=== PATIENT | male | born 1975 | race Caucasian/White ===

== ENCOUNTER 2024-09-10 03:47 | Emergency (ER) | payer OTHER ==
[~2024-09-10] VITALS: Ht 170.2 cm; Wt 59.0 kg
[~2024-09-10 03:47] MED LIST: NO MEDS
[2024-09-10 04:11] LABS: BASOPHILS # (AUTO) 0.1 (0.0-0.1); BASOPHILS % 0.9 % (0.0-1.0); EOSINOPHILS # (AUTO) 0.7 (0.0-0.4); EOSINOPHILS % 5.2 % (0.0-6.0); HEMATOCRIT 41.3 % (38.2-49.6); HEMOGLOBIN 14.2 g/dL (14.0-18.0); LYMPHOCYTES # (AUTO) 3.4 (1.0-3.2); MEAN CORPUSCULAR HEMOGLOBIN 29.5 pg (28-32); MEAN CORPUSCULAR HGB CONC 34.4 g/dL (31-35); MEAN CORPUSCULAR VOLUME 85.7 fL (81-99); MONOCYTES # (AUTO) 0.9 (0.2-0.8); MONOCYTES % 6.8 % (4.4-11.3); NEUTROPHILS # (AUTO) 7.9 (2.1-6.9); NEUTROPHILS % 60.7 % (38.7-80.0); PLATELET COUNT 217 x10e3/uL (140-360); RED BLOOD COUNT 4.82 x10e6/uL (4.3-5.7); WHITE BLOOD COUNT 13.04 x10e3/uL (4.8-10.8)
[2024-09-10 04:44] LABS: ALANINE AMINOTRANSFERASE 9 IU/L (0-55); ALBUMIN 3.3 g/dL (3.5-5.0); ALKALINE PHOSPHATASE 109 IU/L (40-150); ANION GAP 17.2 mmol/L (8-16); BILIRUBIN,TOTAL 0.3 mg/dL (0.2-1.2); BLOOD UREA NITROGEN 9 mg/dL (7-26); BUN/CREATININE RATIO 9 (6-25); CALCIUM 8.6 mg/dL (8.4-10.2); CARBON DIOXIDE 21 mmol/L (22-29); CHLORIDE 97 mmol/L (98-107); CREATINE KINASE 57 IU/L (30-200); CREATININE, SERUM 0.97 mg/dL (0.72-1.25); EST GLOMERULAR FILTRATION RATE 96 ML/MIN (>=60); POTASSIUM 4.2 mmol/L (3.5-5.1); SODIUM 131 mmol/L (136-145); TOTAL PROTEIN 6.7 g/dL (6.5-8.1)
[2024-09-10 04:47] LABS: GLUCOSE 560 mg/dL (74-118)
[2024-09-10 04:50] LABS: CORONAVIRUS COVID-19 AG NEGATIVE (NEGATIVE); INFLUENZA A AG NEGATIVE (NEGATIVE); INFLUENZA B AG NEGATIVE (NEGATIVE)
[2024-09-10 04:53] LABS: TROPONIN I < 0.001 ng/mL (0-0.300)
[2024-09-10] MEDS: SODIUM CHLORIDE 0.9% 1000ML 1,000 ML IV STA (05:00)
[2024-09-10] MEDS: INSULIN REGULAR, HUMAN 100 UNIT/1 ML IV STA (05:00)
[2024-09-10 05:15] LABS: CLARITY,URINE CLEAR (CLEAR); COLOR,URINE YELLOW (YELLOW); LEUKOCYTE ESTERASE ,URINE NEGATIVE (NEGATIVE); NITRITE,URINE NEGATIVE (NEGATIVE); PH,URINE 7 (5 - 7); PROTEIN,URINE DIPSTICK NEGATIVE (NEGATIVE)
[2024-09-10 05:16] LABS: AMPHETAMINES SCREEN,URINE NEGATIVE (NEGATIVE); BENZODIAZEPINES SCREEN,URINE NEGATIVE (NEGATIVE); BILIRUBIN,URINE NEGATIVE (NEGATIVE); CANNABINOIDS SCREEN,URINE NEGATIVE (NEGATIVE); COCAINE SCREEN,URINE NEGATIVE (NEGATIVE); GLUCOSE, URINE 500 (NEGATIVE); KETONES,URINE NEGATIVE (NEGATIVE); METHADONE SCREEN, URINE NEGATIVE (NEGATIVE); OPIATES SCREEN,URINE NEGATIVE (NEGATIVE); PHENCYCLIDINE SCREEN,URINE NEGATIVE (NEGATIVE); URINE UROBILINOGEN 0.2 mg/dL (0.2 - 1)
[2024-09-10 05:20] LABS: WBC,URINE (MAN) 0-5 /HPF (0-5)
[2024-09-10 05:21] LABS: BACTERIA,URINE FEW /HPF; EPITHELIAL CELLS,URINE FEW /LPF; RBC,URINE 0-5 /HPF (0-5)
[2024-09-10 05:50] VITALS: PULSE 84; RESP 18; TEMP 98.6; O2SAT 99
[2024-09-10] MEDS ORDERED: VENTOLIN HFA18 GM INH (05:51)
[2024-09-10] MEDS ORDERED: AZITHROMYCIN250 MG PO (05:51)
== END 2024-09-10 06:32 | disposition home or self-care (01) ==
LOC: EDBD 03:47 → ER 03:49
DX: R05.9 Cough, unspecified (principal); R07.89 Other chest pain; E11.65 Type 2 diabetes mellitus with hyperglycemia; I10 Essential (primary) hypertension; J45.909 Unspecified asthma, uncomplicated; M54.9 Dorsalgia, unspecified; G89.29 Other chronic pain; R01.1 Cardiac murmur, unspecified; Z11.52 Encounter for screening for COVID-19
CPT/HCPCS: 36415; 71045; 80053; 80307; 81001; 82550; 82948; 83690; 83880; 84484; 85025; 87428; 93005; 99284; J7030

== ENCOUNTER 2024-12-13 17:36 | Emergency (ER) | payer OTHER ==
[~2024-12-13] VITALS: Ht 170.2 cm; Wt 59.0 kg
[~2024-12-13 17:36] MED LIST changes: +AZITHROMYCIN250 MG PO; +VENTOLIN HFA18 GM INH
[2024-12-13 18:19] LABS: BASOPHILS % 0.5 % (0.0-1.0); EOSINOPHILS % 3.6 % (0.0-6.0); LYMPHOCYTES % 12.9 % (18.0-39.1); MONOCYTES % 6.1 % (4.4-11.3); NEUTROPHILS % 76.4 % (38.7-80.0); RED CELL DISTRIBUTION WIDTH 13.3 % (11.7-14.4)
[2024-12-13 18:42] LABS: EST GLOMERULAR FILTRATION RATE 110.0 ML/MIN (>=60)
[2024-12-13] MEDS ORDERED: IOPAMIDOL 370 MG/ML 100 ML INFUS..BTL INJ ONE (19:07)
[2024-12-13] MEDS: KETOROLAC TROMETHAMINE 30 MG/ML VIAL IV STA (19:32)
[2024-12-13] MEDS: SODIUM CHLORIDE 0.9% 1000ML 1,000 ML IV SCH (19:32)
[2024-12-13] MEDS ORDERED: AMOX TR-K CLV1 EAC2 PO (20:27)
[2024-12-13] MEDS ORDERED: METRONIDAZOLE 500MG/NS 100ML 200 ML IV ONE (20:49)
[2024-12-13] MEDS: LIDOCAINE HCL 2% LOCAL 20 ML VIAL INJ ONE (20:56)
[2024-12-13] MEDS: METRONIDAZOLE 750MG/NS 150ML 150 ML IV STA (20:56)
[2024-12-13 22:27] VITALS: PULSE 78; RESP 16; TEMP 98.4; O2SAT 95
== END 2024-12-13 23:11 | disposition home or self-care (01) ==
LOC: ER 18:19
DX: K04.7 Periapical abscess without sinus (principal); I10 Essential (primary) hypertension; E11.65 Type 2 diabetes mellitus with hyperglycemia; J45.909 Unspecified asthma, uncomplicated; R01.1 Cardiac murmur, unspecified; M54.9 Dorsalgia, unspecified; G89.29 Other chronic pain
CPT/HCPCS: 36415; 41800; 70487; 80053; 85025; 99284; J0696; J1885; J7030; Q9967